=== PATIENT | male | born 1975 | race Hispanic/Latino ===

== ENCOUNTER 2020-08-25 11:31 | Emergency (ER) | payer OTHER ==
[2020-08-25] MEDS ORDERED: KETOROLAC TROMETHAMINE 30MG/ML ONE (13:14)
[2020-08-25] MEDS ORDERED: DEXAMETHASONE SOD PHOSPHATE 10MG/ML 1ML VIAL ONE (13:14)
[2020-08-25] MEDS ORDERED: HYDROCODONE/ACETAMINOPHEN 5/325 MG TAB ONE (13:14)
== END 2020-08-25 14:45 | disposition home or self-care (01) ==
LOC: EDH 11:31
DX: M43.6 Torticollis (principal); Z98.890 Other specified postprocedural states
CPT/HCPCS: 72125; 96372 ×2; 99284; J1100; J1885